=== PATIENT | female | born 1955 | race African-American/Black ===

== ENCOUNTER 2018-06-03 10:57 | Inpatient (IN) | payer OTHER ==
[~2018-06-03] VITALS: Ht 165.1 cm; Wt 118.7 kg
[2018-06-03] MEDS ORDERED: SODIUM CHLORIDE 0.9% 1,000ML IVBOLUS ONE (12:00)
[2018-06-03] MEDS ORDERED: SODIUM CHLORIDE FLUSH 10ML SYR IVF ONE (12:00)
[2018-06-03] MEDS ORDERED: ALBU8.5H8 INH (12:11)
[2018-06-03] MEDS ORDERED: VIT D PO (12:11)
[2018-06-03] MEDS ORDERED: LISI5TAB7 PO (12:11)
[2018-06-03] MEDS ORDERED: ASPI-496 PO (12:11)
[2018-06-03] MEDS ORDERED: POTA10CA PO (12:11)
[2018-06-03] MEDS ORDERED: ALLERGY MED PO (12:11)
[2018-06-03] MEDS ORDERED: FLUT1BLS INH (12:11)
[2018-06-03] MEDS ORDERED: METF850T2 PO (12:11)
[2018-06-03] MEDS ORDERED: FURO-92 PO (12:11)
[2018-06-03 12:13] LABS: BASOPHILS # (AUTO) 0.01 x10^3/uL (0-0.1); BASOPHILS % (AUTO) 0 % (0-1); EOSINOPHILS # (AUTO) 0.01 x10^3/uL (0-0.4); EOSINOPHILS % (AUTO) 0 % (1-7); LYMPHOCYTES # (AUTO) 1.45 x10^3/uL (1-3.4); LYMPHOCYTES % (AUTO) 9 % (22-44); MD NO; MEAN CORPUSCULAR HGB CONC 33.1 g/dL (32.4-35.8); MEAN CORPUSCULAR VOLUME 81.4 fL (80-100); MEAN PLATELET VOLUME 8.3 fL (7.4-10.4); MONOCYTES # (AUTO) 0.73 x10^3/uL (0.2-0.8); MONOCYTES % (AUTO) 5 % (2-9); NEUTROPHILS # (AUTO) 13.14 x10^3/uL (1.8-6.8); NEUTROPHILS % (AUTO) 86 % (42-75); PLATELET COUNT 397 x10^3/uL (130-400); RED BLOOD COUNT 4.57 x10^6/uL (3.82-5.3)
[2018-06-03 12:27] LABS: ALANINE AMINOTRANSFERASE 17 U/L (12-78); ALBUMIN 3.2 g/dL (3.4-5.0); ANION GAP 5 mmol/L (5-15); CALCIUM 8.4 mg/dL (8.5-10.1); CHLORIDE 107 mmol/L (98-107); CREATININE 0.76 mg/dL (0.55-1.02)
[2018-06-03 12:29] LABS: ALKALINE PHOSPHATASE 84 U/L (45-117); BILIRUBIN,TOTAL 0.6 mg/dL (0.2-1.0); TOTAL PROTEIN 6.9 g/dL (6.4-8.2)
[2018-06-03] MEDS ORDERED: CEFTRIAXONE PMX 1GM/50ML 50 ML IVPB ONE (13:00)
[2018-06-03] MEDS ORDERED: CEFTRIAXONE PMX 1GM/50ML 50 ML ONE (13:11)
[2018-06-03 13:24] LABS: CULTURE INDICATED? YES; MICROSCOPIC INDICATED
[2018-06-03 14:23] VITALS: BP 112/69
[2018-06-03] MEDS ORDERED: ALBUTEROL SULFATE 2.5 MG/3 ML ONE (14:55)
[2018-06-03] MEDS ORDERED: ONDANSETRON 2MG/ML, 2ML IVPush PRN (15:00)
[2018-06-03] MEDS ORDERED: CEFTRIAXONE 1,000 MG in SODIUM CHLORIDE 0.9% 50 ML IV SCH (15:00)
[2018-06-03] MEDS ORDERED: ALBUTEROL SULFATE 2.5 MG/3 ML NPPB PRN (15:00)
[2018-06-03] MEDS ORDERED: GUAIFENESIN/DM 200-20MG, 10ML UDC PO PRN (15:00)
[2018-06-03] MEDS ORDERED: ONDANSETRON ODT 4 MG PO PRN (15:00)
[2018-06-03] MEDS: SODIUM CHLORIDE 0.9% 1,000 ML IV SCH (15:15)
[2018-06-03] MEDS: INSULIN LISPRO 100 UNITS/ML, PEN SQ-INSULIN SCH ×2 (16:00→20:46)
[2018-06-03] MEDS: DOXYCYCLINE 100 MG in DEXTROSE 5% 250 ML IV SCH (16:27)
[2018-06-03] MEDS: ALBUTEROL SULFATE 2.5 MG/3 ML NPPB SCH (19:17)
[2018-06-03 19:30] VITALS: BP 107/65
[2018-06-03] MEDS: ENOXAPARIN 40 MG/0.4 ML SQ SCH (20:42)
[2018-06-03] MEDS: ACETAMINOPHEN 325 MG TABLET PO PRN (21:07)
[2018-06-04] MEDS ORDERED: CEFTRIAXONE PMX 1GM/50ML 50 ML IV SCH (02:00)
[2018-06-04] MEDS: DOXYCYCLINE 100 MG in DEXTROSE 5% 250 ML IV SCH ×2 (04:01→16:18)
[2018-06-04] MEDS: SODIUM CHLORIDE 0.9% 1,000 ML IV SCH (04:02)
[2018-06-04 04:05] VITALS: BP 100/67
[2018-06-04] MEDS: ACETAMINOPHEN 325 MG TABLET PO PRN ×3 (04:08→22:03)
[2018-06-04 05:17] LABS: BASOPHILS # (AUTO) 0.03 x10^3/uL (0-0.1); BASOPHILS % (AUTO) 0 % (0-1); EOSINOPHILS % (AUTO) 1 % (1-7); LYMPHOCYTES # (AUTO) 2.62 x10^3/uL (1-3.4); LYMPHOCYTES % (AUTO) 30 % (22-44); MD NO; MEAN CORPUSCULAR HEMOGLOBIN 26.6 pg (27.0-34.8); MEAN CORPUSCULAR HGB CONC 32.4 g/dL (32.4-35.8); MEAN PLATELET VOLUME 8.3 fL (7.4-10.4); MONOCYTES # (AUTO) 0.78 x10^3/uL (0.2-0.8); MONOCYTES % (AUTO) 9 % (2-9); NEUTROPHILS # (AUTO) 5.34 x10^3/uL (1.8-6.8); NEUTROPHILS % (AUTO) 60 % (42-75); PLATELET COUNT 336 x10^3/uL (130-400); RED BLOOD COUNT 4.17 x10^6/uL (3.82-5.3); RED CELL DISTRIBUTION WIDTH 15.1 % (9.6-15.2)
[2018-06-04 05:21] LABS: ALBUMIN 2.7 g/dL (3.4-5.0); ANION GAP 6 mmol/L (5-15); CALCIUM 8.2 mg/dL (8.5-10.1); CHLORIDE 108 mmol/L (98-107)
[2018-06-04 05:25] LABS: ALANINE AMINOTRANSFERASE 14 U/L (12-78); ALKALINE PHOSPHATASE 74 U/L (45-117); BILIRUBIN,TOTAL 0.6 mg/dL (0.2-1.0); CREATININE 0.69 mg/dL (0.55-1.02); TOTAL PROTEIN 6.3 g/dL (6.4-8.2)
[2018-06-04] MEDS: INSULIN LISPRO 100 UNITS/ML, PEN SQ-INSULIN SCH ×4 (07:00→19:56)
[2018-06-04] MEDS: ALBUTEROL SULFATE 2.5 MG/3 ML NPPB SCH ×4 (07:00→20:00)
[2018-06-04 07:21] VITALS: BP 125/64
[2018-06-04] MEDS ORDERED: ALBUTEROL SULFATE 2.5 MG/3 ML NPPB SCH (09:00)
[2018-06-04] MEDS: ASPIRIN 81 MG TABLET EC PO SCH (09:13)
[2018-06-04] MEDS: LISINOPRIL 5 MG TABLET PO SCH (09:13)
[2018-06-04] MEDS: FLUTICASONE/VILANTEROL 200-25MCG/INH INH SCH (11:55)
[2018-06-04 12:30] VITALS: BP 92/62
[2018-06-04 18:42] VITALS: BP 101/59
[2018-06-04] MEDS: PREGABALIN 75 MG CAPSULE PO SCH (19:51)
[2018-06-04] MEDS: ENOXAPARIN 40 MG/0.4 ML SQ SCH (19:52)
[2018-06-05 00:29] VITALS: BP 117/75
[2018-06-05] MEDS: DOXYCYCLINE 100 MG in DEXTROSE 5% 250 ML IV SCH (03:46)
[2018-06-05 06:33] VITALS: BP 119/78
[2018-06-05] MEDS: ALBUTEROL SULFATE 2.5 MG/3 ML NPPB SCH ×2 (06:55→10:30)
[2018-06-05] MEDS: INSULIN LISPRO 100 UNITS/ML, PEN SQ-INSULIN SCH ×2 (07:00→11:00)
[2018-06-05] MEDS: ACETAMINOPHEN 325 MG TABLET PO PRN (08:23)
[2018-06-05] MEDS: LISINOPRIL 5 MG TABLET PO SCH (08:23)
[2018-06-05] MEDS: FLUTICASONE/VILANTEROL 200-25MCG/INH INH SCH (08:24)
[2018-06-05] MEDS: PREGABALIN 75 MG CAPSULE PO SCH (08:24)
[2018-06-05] MEDS: ASPIRIN 81 MG TABLET EC PO SCH (08:24)
[2018-06-05] MEDS ORDERED: POLYETHYLENE GLYCOL 17 GM PACKET PO ONE (08:30)
[2018-06-05] MEDS ORDERED: DOXY100T PO (08:45)
[2018-06-05] MEDS ORDERED: CEFD300C37 PO (08:45)
== END 2018-06-05 11:55 | disposition home or self-care (01) | DRG 871 ==
LOC: ED 11:41 → EDIP 12:54 → 3NE 13:46 → DCLOUNGE 06-05 11:41
PROVIDERS: ADMIT Hospitalist; ATTEND Hospitalist
DX: A41.9 Sepsis, unspecified organism (principal); J96.01 Acute respiratory failure with hypoxia; J15.9 Unspecified bacterial pneumonia; J45.909 Unspecified asthma, uncomplicated; K59.00 Constipation, unspecified; I10 Essential (primary) hypertension; E11.42 Type 2 diabetes mellitus with diabetic polyneuropathy; E78.5 Hyperlipidemia, unspecified; M79.1 Myalgia; R60.0 Localized edema; Z79.899 Other long term (current) drug therapy; Z79.84 Long term (current) use of oral hypoglycemic drugs; Z79.82 Long term (current) use of aspirin
CPT/HCPCS: 36415; 99285; J7613; 71045; 80053; 81001; 82962; 83605; 85025; 87040; 87086; 93005; 94640; 96365; J0696; J1650; J2405; J7060; J1815; J7030